=== PATIENT | male | born 1955 | race African-American/Black ===

== ENCOUNTER → 2019-08-04 | Outpatient (CLI) | payer OTHER ==
[~2019-08-04] MED LIST: CLARITIN-D 12 H1 TA1 PO; GARAMYCIN5 M1 OP; NEXIUM 40 MG CA40 M1 PO; ZPAK PO
== END ==
LOC: RAD 09:10
DX: M43.14 Spondylolisthesis, thoracic region (principal); M47.814 Spondylosis without myelopathy or radiculopathy, thoracic region

== ENCOUNTER → 2020-01-02 | Outpatient (CLI) | payer OTHER | LOC: LAB 09:22 | PROVIDERS: ATTEND Family Medicine | DX: Z20.828 Contact with and (suspected) exposure to other viral communicable diseases (principal) ==

== ENCOUNTER → 2021-05-18 | Outpatient (CLI) | payer OTHER | LOC: CAT 07:59 | PROVIDERS: ATTEND Family Medicine | DX: Z13.6 Encounter for screening for cardiovascular disorders (principal); I25.10 Atherosclerotic heart disease of native coronary artery without angina pectoris; E78.00 Pure hypercholesterolemia, unspecified ==